=== PATIENT | female | born 1965 | race Two or more races ===

== ENCOUNTER 2024-10-03 05:16 | Day surgery (SDC) | payer OTHER ==
[2024-09-29 09:02] VITALS: BP 150/90
[2024-09-29 09:43] LABS: BASO % 0.6 % (0.1-1.2); EOS # 0.18 (0.04-0.54); EOS % 2.8 % (0.7-7.0); HEMATOCRIT 43.1 % (34.1-44.9); HEMOGLOBIN 14.5 g/dL (11.2-15.7); LYMPH # 1.65 (1.18-3.74); LYMPH % 25.3 % (19.3-53.1); MEAN CORPUSCULAR HEMOGLOBIN 28.8 pg (25.6-32.2); MONO # 0.59 (0.24-0.82); NEUT # 4.04 (1.56-6.13); PLATELET COUNT 235 K/uL (163-369); RED BLOOD COUNT 5.03 M/uL (3.93-5.22); RED CELL DISTRIBUTION WIDTH 13.2 % (11.6-14.4)
[2024-09-29 10:03] LABS: PH,URINE 5.5 (5.0-8.0); URINE APPEARANCE Clear; URINE BILIRRUBIN Negative (NEGATIVE); URINE BLOOD Negative; URINE COLOR Yellow; URINE GLUCOSE Negative (NEGATIVE); URINE KETONE Negative (NEGATIVE); URINE LEUKOCYTE Large; URINE NITRATE Negative; URINE PROTEIN Negative (NEGATIVE); URINE UROBILINOGEN 0.2 E.U./dl
[2024-09-29 10:08] LABS: URINE BACTERIA 772.3 uL (0.0-1933); URINE EPITHELIAL CELLS 35.4 uL (0.0-38.8); URINE RBC 2.9 uL (0.0-20.8); URINE WBC 150.4 uL (0.0-23.2)
[2024-09-29 10:24] LABS: URINE CAST 0.58 uL (0.0-1.40)
[2024-09-29 10:44] LABS: INR 1.01
[2024-09-29 10:51] LABS: ALBUMIN 3.8 gm/dL (3.4-5.0); BILIRUBIN TOTAL 0.66 mg/dL (0.3-1.2); CALCIUM 8.8 mg/dL (8.5-10.1); CREATININE SERUM 0.77 mg/dL (0.55-1.02); GFR 76.21; GLOBULINA 3.1 G/DL (2.4-3.5); POTASSIUM 3.77 mEq/L (3.5-5.1); TOTAL PROTEIN 6.9 gm/dL (6.4-8.2)
[~2024-10-03] VITALS: Ht 170.2 cm; Wt 102.1 kg
[~2024-10-03 05:16] MED LIST: HYDRODIURIL12.5 MG PO; LYRICA50 MG; SYNTHROID75 MCG PO; TOPIRAMATE ER50 M1 PO; TREXIMET 85-501 EACH; VASOTEC2.5 MG PO; ZYRTEC10 M3 PO
[2024-10-03] MEDS ORDERED: CEFAZOLIN SODIUM 1,000 MG VIAL ONE ×2 (07:13→07:29)
[2024-10-03] MEDS ORDERED: DEXAMETHASONE SODIUM PHOSPHATE 4 MG/ML VIAL ONE (07:16)
[2024-10-03] MEDS ORDERED: OXYMETAZOLINE HCL 15 ML NASAL DROPS NASAL ONE (08:30)
== END 2024-10-03 16:10 | disposition home or self-care (01) ==
LOC: CIR.AMB 05:16
PROVIDERS: ATTEND Otolaryngology
DX: J35.1 Hypertrophy of tonsils (principal)